=== PATIENT | male | born 1990 | race Caucasian/White ===

== ENCOUNTER 2017-01-21 02:04 | Inpatient (IN) ==
[2017-01-21 02:50] LABS: Basophils % 0.4 %; Eosinophils # 0.1 K/mcL (0.0-0.6); Eosinophils % 0.7 %; Hematocrit 35.5 % (37.5-50.1); Hemoglobin 11.4 g/dL (12.9-16.9); Immature Granulocytes % 0.3 % (0-4); Lymphocytes # 1.7 K/mcL (0.6-4.6); Lymphocytes % 15.2 %; Mean Corpuscular HGB Conc 32.1 g/dL (31.6-35.5); Mean Corpuscular Hemoglobin 28.9 pg (28.0-33.3); Mean Corpuscular Volume 89.9 fL (83.0-100.0); Mean Platelet Volume 8.8 fL (9.4-12.4); Monocytes # 1.2 K/mcL (0.0-1.3); Monocytes % 10.7 %; Neutrophils # 8.2 K/mcL (1.6-8.9); Platelet Count 290 K/mcL (140-400); Red Blood Count 3.95 M/mcL (4.19-5.50); Segmented Neutrophils % 72.7 %
[2017-01-21 03:08] LABS: Alanine Aminotransferase 67 Units/L (0-55); Albumin 2.5 g/dL (3.5-5.0); Albumin/Globulin Ratio 0.4 (1.1-2.2); Alkaline Phosphatase 70 Units/L (38-126); Aspartate Amino Transferase 47 Units/L (5-34); BUN/Creatinine Ratio 4 (6-26); Bilirubin,Direct 0.4 mg/dL (0.0-0.5); Bilirubin,Indirect 0.2 mg/dL (0.0-1.2); Bilirubin,Total 0.6 mg/dL (0.2-1.2); Carbon Dioxide 26 mEq/L (19-29); Chloride 98 mEq/L (98-109); Globulin 6.2 g/dL (2.4-3.5); Glucose 194 mg/dL (70-99); Lipase 19 Units/L (8-78); Osmolality,Calculated 276 (280-300); Potassium 3.8 mEq/L (3.5-4.5); Sodium 132 mEq/L (136-145); Total Protein 8.7 g/dL (6.0-8.3); eGFR For African Americans > 60 (> 60); eGFR For Non-African Americans > 60 (> 60)
[2017-01-21 03:09] LABS: Blood Urea Nitrogen 3 mg/dL (8-26)
--- NOTE | 2017-01-21 03:35 | Emergency Department Note ---
Disposition Clinical Impression: Pericholecystic abscess, Hyponatremia Cholecystitis, acute with cholelithiasis Qualifiers: Cholelithiasis location: gallbladder Biliary obstruction: without biliary obstruction Qualified Code(s): K80.00 - Calculus of gallbladder with acute cholecystitis without obstruction Anemia Qualifiers: Anemia type: unspecified type Qualified Code(s): D64.9 - Anemia, unspecified Disposition: Admitted As Inpatient Condition: Fair Time of Disposition: 06:31 Abdominal Pain HPI - General Chief Complaint: ED Abdominal Pain Stated Complaint: abdominal pain/chest pain Time Seen by Provider: 01/21/17 03:08 Source: patient Nursing Notes Reviewed: Yes Vital Signs Reviewed: Yes - History of Present Illness HPI Narrative: Patient is a 26-year-old male with right upper quadrant pain times past 2 days who is status post transcutaneous gallbladder stenting for infected gallbladder times one month ago. Patient states that the stent was accidentally ripped out by him 2 weeks ago and was seen in the ED [facility]. Patient states he is awaiting surgery but is not scheduled for another 3 weeks. Patient states he is placed on antibiotics completed his course of antibiotics and has been pain-free for little more than a week. Patient states he has been refraining from greasy foods. Patient states his pain started acutely 2 days ago that was very minor and may be 2/10 but is now 10 out of 10. Patient states that he has been having intermittent fevers but has not checked with thermometer. Patient has history of staph infections and was admitted bacteremia secondary to staph 4 months ago. Also has a history of hepatitis C Patient has history of prior IV drug use and admits to methamphetamine use 1 day ago to help with pain control which was unsuccessful. Pain Scale: 10 - Related Data Allergies Allergy/AdvReac Type Severity Reaction Status Date / Time codeine Allergy Hives Verified 01/21/17 11:11 All systems ED: reviewed and negative except as stated. Constitutional: Reports: fever, chills Cardiovascular: Denies: chest pain Respiratory: Denies: cough, dyspnea Gastrointestinal: Reports: abdominal pain, nausea. Denies: vomiting Musculoskeletal: Reports: back pain Abdominal Pain PMH - Past Medical History Medical history: Reports: hepatitis, other Male Surgical History: Reports: other Psychiatric history: Reports: anxiety, ADHD - Social History Smoking status: Current every day smoker Alcohol use: Reports: none Drug use: Reports: none Physical Exam - General Limitations: no limitations General appearance: alert - Head Head exam: atraumatic, normocephalic, normal inspection - Eye Eye exam: Present: normal appearance, PERRL, EOMI. Absent: scleral icterus, nystagmus - ENT ENT exam: normal exam, normal oropharynx, mucous membranes moist - Neck Neck exam: Present: normal inspection, full ROM, trachea midline. Absent: tenderness, meningismus, lymphadenopathy - Chest Chest inspection: Present: normal inspection, symmetric chest wall rise. Absent : tenderness - Respiratory Respiratory exam: Present: normal lung sounds bilaterally, respiratory distress. Absent: wheezes - Cardiovascular Cardiovascular exam: Present: normal rhythm, tachycardia - Abdominal Exam Abdominal exam: Present: soft, tenderness, guarding, normal bowel sounds. Absent: rigidity Abdominal tenderness: Present: RUQ, RLQ - Extremities Exam Extremities exam: Present: normal inspection, full ROM, normal capillary refill. Absent: tenderness, pedal edema - Back Exam Back exam: Present: normal inspection, tenderness (Right flank), CVA tenderness (R). Absent: CVA tenderness (L) - Neurological Exam Neurological exam: Present: alert, oriented X3, CN II-XII intact - Psychiatric Psychiatric exam: Present: normal affect, normal mood - Skin Skin exam: Present: warm, dry. Absent: pallor, mottled Course - Reevaluation(s) Reevaluation #1: Assessment: Sepsis, ascending cholangitis, abdominal abscess, endocarditis, cholecystitis Plan: CBC, BMP, LFTs, lipase, lactate, peripheral blood cultures, CTA chest and CT abdomen and pelvis Time: 03:52 Reevaluation #2: Patient's pain currently 6 out of 10 versus 10 out of 10. Patient awaiting CT scan. 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 Time: 04:27 Reevaluation #3: CT scan shows: IMPRESSION: Cholelithiasis with acute cholecystitis and a pericholecystic abscess. Patient's pain currently controlled with IV morphine. Patient's labs show mild elevation of WBC, hyponatremia at 132, mild elevation of AST and ALT at 47 and 67 respectively, negative lactic acid at 2.0 and negative troponin 0.01. Patient started on antibiotics IV Vanco and Zosyn, patient received 2 L of IV normal saline that did help with the hyponatremia. Recommend admission for further workup and possible surgical evaluation. Time: 06:20 Additional Reevaluation(s): Awaiting for hospitalist to call back. Patient receiving another dose of pain medication morphine 4 mg IV. Pain 7 out of 10 currently 0754 hrs., patient received another 4 mg of morphine. - Consultations Consultation #1: Dr. Hawkins states he will see the patient once he is admitted to medicine. Time: 07:16 Vital Signs Temperature 99.4 F 01/21/17 02:06 Pulse Rate 131 01/21/17 02:06 Respiratory Rate 16 01/21/17 02:06 Blood Pressure 150/94 01/21/17 02:06 O2 Sat by Pulse Oximetry 99 01/21/17 02:06 Temperature 98.4 F 01/21/17 18:56 Pulse Rate 95 01/21/17 18:56 Respiratory Rate 14 01/21/17 18:56 Blood Pressure 150/80 01/21/17 18:56 O2 Sat by Pulse Oximetry 100 01/21/17 18:56 Oxygen Delivery Oxygen Delivery Room Air Abdominal Pain - Medical Records Medical records reviewed: Yes I reviewed the patient's medical records. - Lab Data Lab results reviewed: Yes I reviewed the patient's lab results. Lab results narrative: Short CBC 01/21/17 Range/Units 02:41 WBC 11.3 H (4.3-11.1) K/mcL Hgb 11.4 L (12.9-16.9) g/dL Hct 35.5 L (37.5-50.1) % Plt Count 290 (140-400) K/mcL Neutrophils # 8.2 (1.6-8.9) K/mcL BMP 01/21/17 Range/Units 02:41 Sodium 132 L (136-145) mEq/L Potassium 3.8 (3.5-4.5) mEq/L Chloride 98 (98-109) mEq/L Carbon Dioxide 26 (19-29) mEq/L BUN 3 L (8-26) mg/dL Creatinine 0.80 (0.72-1.25) mg/dL Glucose 194 H (70-99) mg/dL Calcium 9.0 (8.6-10.8) mg/dL Cardiac Enzymes 01/21/17 Range/Units 02:41 Troponin I 0.01 (0-0.03) ng/mL Liver Function 01/21/17 Range/Units 02:41 Total Bilirubin 0.6 (0.2-1.2) mg/dL Direct Bilirubin 0.4 (0.0-0.5) mg/dL AST 47 H (5-34) Units/L ALT 67 H (0-55) Units/L Alkaline Phosphatase 70 (38-126) Units/L Albumin 2.5 L (3.5-5.0) g/dL Urine 01/21/17 Range/Units 04:11 Urine Color Yellow (Yellow) Urine Clarity Cloudy A (Clear) Urine pH 7.0 (5.0-8.0) pH Units Ur Specific [place] 1.010 (1.010-1.025) Urine Protein Negative (Neg-Trace) mg/dL Urine Glucose (UA) 250 H (Normal) mg/dL Result diagrams: 01/21/17 02:41 01/21/17 02:41 Lab Results 01/21/17 01/21/17 01/21/17 Range/Units 02:41 02:41 02:41 WBC 11.3 H (4.3-11.1) K/mcL RBC 3.95 L (4.19-5.50) M/mcL Hgb 11.4 L (12.9-16.9) g/dL Hct 35.5 L (37.5-50.1) % MCV 89.9 (83.0-100.0) fL MCH 28.9 (28.0-33.3) pg MCHC 32.1 (31.6-35.5) g/dL RDW 14.0 (11.5-14.5) % Plt Count 290 (140-400) K/mcL MPV 8.8 L (9.4-12.4) fL Immature Gran % 0.3 (0-4) % Seg Neutrophils % 72.7 % Lymphocytes % 15.2 % Monocytes % 10.7 % Eosinophils % 0.7 % Basophils % 0.4 % Neutrophils # 8.2 (1.6-8.9) K/mcL Lymphocytes # 1.7 (0.6-4.6) K/mcL Monocytes # 1.2 (0.0-1.3) K/mcL Eosinophils # 0.1 (0.0-0.6) K/mcL Basophils # 0.0 (0.0-0.2) K/mcL Sodium 132 L (136-145) mEq/L Potassium 3.8 (3.5-4.5) mEq/L Chloride 98 (98-109) mEq/L Carbon Dioxide 26 (19-29) mEq/L BUN 3 L (8-26) mg/dL Creatinine 0.80 (0.72-1.25) mg/dL Est GFR ( Amer) > 60 (> 60) Est GFR (Non-Af Amer) > 60 (> 60) BUN/Creatinine Ratio 4 L (6-26) Glucose 194 H (70-99) mg/dL Calculated Osmolality 276 L (280-300) Lactic Acid 2.0 (0.5-2.2) mmol/L Calcium 9.0 (8.6-10.8) mg/dL Phosphorus 2.8 (2.3-4.7) mg/dL Magnesium 1.6 (1.6-2.6) mg/dL Total Bilirubin 0.6 (0.2-1.2) mg/dL Direct Bilirubin 0.4 (0.0-0.5) mg/dL Indirect Bilirubin 0.2 (0.0-1.2) mg/dL AST 47 H (5-34) Units/L ALT 67 H (0-55) Units/L Alkaline Phosphatase 70 (38-126) Units/L Troponin I (0-0.03) ng/mL Serum Total Protein 8.7 H (6.0-8.3) g/dL Albumin 2.5 L (3.5-5.0) g/dL Globulin 6.2 H (2.4-3.5) g/dL Albumin/Globulin Ratio 0.4 L (1.1-2.2) Lipase 19 (8-78) Units/L Urine Color (Yellow) Urine Clarity (Clear) Urine pH (5.0-8.0) pH Units Ur Specific [place] (1.010-1.025) Urine Protein (Neg-Trace) mg/dL Urine Glucose (UA) (Normal) mg/dL Urine Ketones (Negative) mg/dL Urine Blood (Negative) Urine Nitrite (Negative) Urine Bilirubin (Negative) Urine Urobilinogen (Normal) mg/dL Ur Leukocyte Esterase (Negative) Urine Microscopic RBC (0-3) per hpf Urine Microscopic WBC (0-3) per hpf Ur Squamous Epith Cells (None-Few) per lpf Urine Bacteria (None-Few) per hpf Hyaline Casts (None-Few) per lpf Ur Culture Indicated? (NO) 01/21/17 01/21/17 Range/Units 02:41 04:11 WBC (4.3-11.1) K/mcL RBC (4.19-5.50) M/mcL Hgb (12.9-16.9) g/dL Hct (37.5-50.1) % MCV (83.0-100.0) fL MCH (28.0-33.3) pg MCHC (31.6-35.5) g/dL RDW (11.5-14.5) % Plt Count (140-400) K/mcL MPV (9.4-12.4) fL Immature Gran % (0-4) % Seg Neutrophils % % Lymphocytes % % Monocytes % % Eosinophils % % Basophils % % Neutrophils # (1.6-8.9) K/mcL Lymphocytes # (0.6-4.6) K/mcL Monocytes # (0.0-1.3) K/mcL Eosinophils # (0.0-0.6) K/mcL Basophils # (0.0-0.2) K/mcL Sodium (136-145) mEq/L Potassium (3.5-4.5) mEq/L Chloride (98-109) mEq/L Carbon Dioxide (19-29) mEq/L BUN (8-26) mg/dL Creatinine (0.72-1.25) mg/dL Est GFR ( Amer) (> 60) Est GFR (Non-Af Amer) (> 60) BUN/Creatinine Ratio (6-26) Glucose (70-99) mg/dL Calculated Osmolality (280-300) Lactic Acid (0.5-2.2) mmol/L Calcium (8.6-10.8) mg/dL Phosphorus (2.3-4.7) mg/dL Magnesium (1.6-2.6) mg/dL Total Bilirubin (0.2-1.2) mg/dL Direct Bilirubin (0.0-0.5) mg/dL Indirect Bilirubin (0.0-1.2) mg/dL AST (5-34) Units/L ALT (0-55) Units/L Alkaline Phosphatase (38-126) Units/L Troponin I 0.01 (0-0.03) ng/mL Serum Total Protein (6.0-8.3) g/dL Albumin (3.5-5.0) g/dL Globulin (2.4-3.5) g/dL Albumin/Globulin Ratio (1.1-2.2) Lipase (8-78) Units/L Urine Color Yellow (Yellow) Urine Clarity Cloudy A (Clear) Urine pH 7.0 (5.0-8.0) pH Units Ur Specific [place] 1.010 (1.010-1.025) Urine Protein Negative (Neg-Trace) mg/dL Urine Glucose (UA) 250 H (Normal) mg/dL Urine Ketones Negative (Negative) mg/dL Urine Blood Negative (Negative) Urine Nitrite Negative (Negative) Urine Bilirubin Negative (Negative) Urine Urobilinogen 4.0 H (Normal) mg/dL Ur Leukocyte Esterase Negative (Negative) Urine Microscopic RBC 0-3 (0-3) per hpf Urine Microscopic WBC 0-3 (0-3) per hpf Ur Squamous Epith Cells Few (None-Few) per lpf Urine Bacteria None Seen (None-Few) per hpf Hyaline Casts None Seen (None-Few) per lpf Ur Culture Indicated? NO (NO) - Radiology Data Radiology results reviewed: Yes I reviewed the patient's radiology results. Abdomen/Pelvis CT 01/21/17 03:51 IMPRESSION: Cholelithiasis with acute cholecystitis and a pericholecystic abscess. D/ / Ronny Carolina MD / Ronny Carolina MD Interpreting Provider: Ronny Carolina MD Chest CTA 01/21/17 03:51 IMPRESSION: No evidence of pulmonary embolism or acute pulmonary abnormality. D/ / Ronny Carolina MD / Ronny Carolina MD Interpreting Provider: Ronny Carolina MD - EKG Data EKG attestation: Yes I reviewed and interpreted this EKG. EKG results narrative: EKG taken 01/21/2017 and 0-50 hours shows a sinus tachycardia at a rate of 126 bpm with no acute ST elevations or depressions any leads no S1 QT T3. No previous EKG for comparison. Attestation Statement - Attestation Attestation: I, Antony Vidal MD, personally performed a history and physical exam of the patient and discussed their management with the resident. I reviewed the resident's note and agree with the documented findings, medical decision making , and plan of care. 26-year-old male presents to the emergency room with a complaint of right upper quadrant abdominal pain over the past 2 days. Patient states that he had an infected gallbladder about a month ago and had a percutaneous drain tube placed in the gallbladder at another facility. Reports they wanted to wait 2 months and then do surgery. About 2 weeks ago he accidentally pulled out the drain tube but did not go back and has not had any follow-up. Over the past couple of days he has had increasing pain with intermittent fever. On examination patient is a well-developed well-nourished male in no acute distress but who appears acutely ill. He is tachycardic with a heart rate in the 130s. Oddly diaphoretic. No cyanosis. He is alert and oriented 3. Breast sounds are clear and equal bilaterally. Heart tachycardic and regular. Abdomen is soft with present bowel sounds. There is moderate right upper quadrant tenderness on direct palpation with guarding. No rebound tenderness. Labs reviewed. CT of the abdomen and pelvis shows cholelithiasis with acute cholecystitis and pericholecystic abscess. Dr. Worley discussed with the surgeon hearing healthcare practitioner, Dr. Hawkins, and he will consult on the patient in the hospital. The hospitalist, Dr. Valentine, was consulted and accepted admission of the patient.
[2017-01-21] MEDS ORDERED: 0.9 % Sodium Chloride 1,000 ML IVC ONE ×2 (03:37→04:04)
[2017-01-21] MEDS ORDERED: Ondansetron 4 MG/2 ML VIAL IV ONE (03:37)
[2017-01-21] MEDS ORDERED: *HR* Morphine 2 MG/ML SYRINGE IVP ONE ×4 (03:37→07:50)
[2017-01-21] MEDS ORDERED: Vancomycin 2,000 MG in D5% in Water 250 ML IVPB ONE (04:02)
[2017-01-21] MEDS ORDERED: Piperacillin/Tazobactam 3.375 GM in D5% in Water (Mini-Bag+) 100 ML IVPB ONE (04:02)
[2017-01-21 04:25] LABS: Bilirubin,Urine Negative (Negative); Blood,Urine Negative (Negative); Clarity,Urine Cloudy (Clear); Color,Urine Yellow (Yellow); Glucose,Urine (UA) 250 mg/dL (Normal); Ketones,Urine Negative (Negative); Leukocyte Esterase,Urine Negative (Negative); Nitrite,Urine Negative (Negative); Protein,Urine Negative (Neg-Trace)
[2017-01-21 04:27] LABS: Bacteria,Urine None Seen per hpf (None-Few); Hyaline Casts,Urine None Seen per lpf (None-Few); RBC,Urine 0-3 per hpf (0-3); Squamous Epithelial Cell,Urine Few per lpf (None-Few); WBC,Urine 0-3 per hpf (0-3)
[2017-01-21 04:36] LABS: Magnesium 1.6 mg/dL (1.6-2.6); Phosphorous 2.8 mg/dL (2.3-4.7)
[2017-01-21] MEDS ORDERED: Vancomycin 1,250 MG in D5% in Water 250 ML IVPB ONE (04:37)
--- NOTE | 2017-01-21 10:25 | Internal Med History&Physical ---
Date of Encounter: 01/21/17 Time of Encounter: 10:22 Assessment and Plan (1) Cholecystitis, acute with cholelithiasis Current visit: Yes Status: Acute HE was seen at [facility] and treated for infected GB as he says. Patient states he is awaiting surgery but is not scheduled for another 3 weeks. he says he finished 15 days course of antibiotics and had a drain placed that got ripped off accidentally. abd CT scan shows cholecystiis with pericholecystic abscess. has h/o IVDA and sepsis with bacteremia in the past. will send blood cx X2 start cefepime and vancomycin surgery has been consulted keep NPO for now. Qualifiers: Cholelithiasis location: gallbladder Biliary obstruction: without biliary obstruction Qualified Code(s): K80.00 - Calculus of gallbladder with acute cholecystitis without obstruction (2) Pericholecystic abscess Current visit: Yes Status: Acute as above (3) IV drug abuse Current visit: Yes Status: Chronic Internal Medicine - H&P: HPI Chief complaint: abdominal pain Admitted From: Home History of present illness: Mr. Banda is a 26 year old male with PMH of bacteremia, IVDA(meth), right upper quadrant pain times past 2 days who is status post placement of a drain for infected gallbladder times one month ago. Patient states that the drain was accidentally ripped out by him 2 weeks ago and was seen in the ED [facility]. Patient states he is awaiting surgery but is not scheduled for another 3 weeks. Patient states he is placed on antibiotics completed his course of antibiotics for 15 days and has been pain-free for little more than a week. HE says the drian was putting out pus initially which has gradually decreased. Patient states he has been refraining from greasy foods. Patient states his pain started acutely 2 days ago that was very minor and may be 2/10 but is now 10 out of 10. he denies n/v but says that he has rt lower limb numbness. Patient has history of staph infections and was admitted bacteremia secondary to staph 4 months ago. Also has a history of hepatitis C Patient has history of prior IV drug use and admits to methamphetamine use 1 day ago to help with pain control which was unsuccessful. Dr. morales was consulted from ED and was told to be admitted to hospitalist service. Past Med Surg Social Fam HX - Past Medical History Medical history: hepatitis, other Psychiatric history: anxiety, ADHD - Social History Smoking Status: Current every day smoker Alcohol use: none Drug use: none Internal Medicine - H&P: Meds Allergies No Known Allergies Allergy (Verified 01/21/17 02:11) All Systems PM: A 10-system review of systems was performed and is negative for pertinent findings except as documented above in the HPI. - Constitutional Vitals: Temp Pulse Resp BP Pulse Ox 99.6 F 124 20 156/84 97 01/21/17 08:57 01/21/17 08:57 01/21/17 08:57 01/21/17 08:57 01/21/17 08:57 General appearance: Present: mild distress, A&O X 3 Exam: neck- supple chest- b/l lear cvs-s1 and s2, no mr//g abd-gurading, tender rt. upper quadrant, bs are preent ext- no edema neuro- no focal defecits. Internal Med - H&P Results - Labs CBC & Chem 7: 01/21/17 02:41 01/21/17 02:41
[2017-01-21] MEDS ORDERED: traMADol 50 MG TABLET PO PRN (10:33)
[2017-01-21] MEDS ORDERED: Ondansetron 4 MG/2 ML VIAL IVP PRN (10:36)
--- NOTE | 2017-01-21 11:25 | General Surgery Consult Note ---
Date of Encounter: 01/21/17 Time of Encounter: 11:19 Assessment and Plan (1) Cholecystitis, acute with cholelithiasis Current Visit: Yes Status: Acute Pt has a large intra hepatic gallbladder with associated pericholecystic fluid. I would recommend a CT guided drain placement by IR until the inflammation has subsided. Qualifiers: Cholelithiasis location: gallbladder Biliary obstruction: without biliary obstruction Qualified Code(s): K80.00 - Calculus of gallbladder with acute cholecystitis without obstruction History of Present Illness Consult date: 01/21/17 Reason for consult: gallstones History of present illness: This is a 26 yo male that lives in [facility]. He had been treated previously for acute cholecystitis by another facility. There is question of a previous drain placement. He reports is was pulled out 2 weeks ago. Past Med Surg Social Fam HX - Past Medical History Medical history: hepatitis, other Psychiatric history: anxiety, ADHD - Social History Smoking Status: Current every day smoker Alcohol use: none Drug use: none Medications and Allergies No Known Home Drugs 01/21/17 [History] Allergies codeine Allergy (Verified 01/21/17 11:11) Hives Review of Systems All systems PM: A 10-system review of systems was performed and is negative for pertinent findings except as documented above in the HPI. - Constitutional fever(s), night sweats, weakness - Gastrointestinal abdominal pain, cramping General Surgery Exam Initial Vital Signs Temp Pulse Resp BP Pulse Ox 99.4 F 131 16 150/94 99 01/21/17 02:06 01/21/17 02:06 01/21/17 02:06 01/21/17 02:06 01/21/17 02:06 - General physical appearance well nourished - Eyes PERRL, normal ocular movement - Neck no masses, trachea midline - Respiratory normal respiratory effort - Abdomen Abdomen general surgery: Present: bowel sounds present, tender Abdominal Tenderness: Present: RUQ - Neurologic Present: CN 2-12 grossly intact, normal sensation - Musculoskeletal Present: normal posture - Psychiatric Psychiatric general surgery: Present: A&Ox3, speech is normal Exam Initial Vital Signs Temp Pulse Resp BP Pulse Ox 99.4 F 131 16 150/94 99 01/21/17 02:06 01/21/17 02:06 01/21/17 02:06 01/21/17 02:06 01/21/17 02:06 Results - Labs 01/21/17 02:41 01/21/17 02:41 Abnormal lab results WBC 11.3 K/mcL (4.3-11.1) H 01/21/17 02:41 RBC 3.95 M/mcL (4.19-5.50) L 01/21/17 02:41 Hgb 11.4 g/dL (12.9-16.9) L 01/21/17 02:41 Hct 35.5 % (37.5-50.1) L 01/21/17 02:41 MPV 8.8 fL (9.4-12.4) L 01/21/17 02:41 Sodium 132 mEq/L (136-145) L 01/21/17 02:41 BUN 3 mg/dL (8-26) L 01/21/17 02:41 BUN/Creatinine Ratio 4 (6-26) L 01/21/17 02:41 Glucose 194 mg/dL (70-99) H 01/21/17 02:41 Calculated Osmolality 276 (280-300) L 01/21/17 02:41 AST 47 Units/L (5-34) H 01/21/17 02:41 ALT 67 Units/L (0-55) H 01/21/17 02:41 Serum Total Protein 8.7 g/dL (6.0-8.3) H 01/21/17 02:41 Albumin 2.5 g/dL (3.5-5.0) L 01/21/17 02:41 Globulin 6.2 g/dL (2.4-3.5) H 01/21/17 02:41 Albumin/Globulin Ratio 0.4 (1.1-2.2) L 01/21/17 02:41 Urine Clarity Cloudy (Clear) A 01/21/17 04:11 Urine Glucose (UA) 250 mg/dL (Normal) H 01/21/17 04:11 Urine Urobilinogen 4.0 mg/dL (Normal) H 01/21/17 04:11 All other labs normal. - Imaging CT scan - abdomen: image reviewed CT scan - chest: image reviewed Consult Discharge Plan - Plan Referrals: NO,PCP [Primary Care Provider] -
[2017-01-21] MEDS: *HR* Morphine 2 MG/ML SYRINGE IVP PRN ×4 (11:35→22:04)
[2017-01-21] MEDS: 0.9 % Sodium Chloride 1,000 ML IVC SCH (11:36)
[2017-01-21] MEDS: *HR* Enoxaparin 30 MG/0.3 ML SYRINGE SQ SCH (11:36)
[2017-01-21] MEDS ORDERED: Ketorolac 30 MG/ML VIAL IVP ONE (12:22)
[2017-01-21] MEDS: Nicotine 21 MG PATCH.TD24 TD SCH (13:03)
[2017-01-21] MEDS: Vancomycin 1,500 MG in D5% in Water 250 ML IVPB SCH (15:31)
[2017-01-21] MEDS: Piperacillin/Tazobactam 3.375 GM in D5% in Water (Mini-Bag+) 100 ML IVPB SCH (17:19)
[2017-01-21] MEDS ORDERED: Vancomycin 1,000 MG in D5% in Water 250 ML IVPB SCH (18:00)
[2017-01-21] MEDS: Ketorolac 30 MG/ML VIAL IVP PRN (23:43)
[2017-01-22] MEDS: Piperacillin/Tazobactam 3.375 GM in D5% in Water (Mini-Bag+) 100 ML IVPB SCH ×3 (01:47→17:59)
[2017-01-22] MEDS: *HR* Morphine 2 MG/ML SYRINGE IVP PRN ×4 (01:48→11:55)
[2017-01-22] MEDS: 0.9 % Sodium Chloride 1,000 ML IVC SCH ×2 (01:51→06:38)
[2017-01-22] MEDS ORDERED: *HR* Dextrose 50 % in Water (Syg) 50 ML SYRINGE ONE (05:48)
[2017-01-22] MEDS: *HR* Dextrose 50 % in Water (Syg) 50 ML SYRINGE IVP ONE ×2 (05:49→06:11)
[2017-01-22] MEDS: *HR* Enoxaparin 30 MG/0.3 ML SYRINGE SQ SCH (05:50)
[2017-01-22] MEDS: Vancomycin 1,500 MG in D5% in Water 250 ML IVPB SCH ×2 (05:50→17:58)
[2017-01-22] MEDS: Ketorolac 30 MG/ML VIAL IVP PRN (06:49)
[2017-01-22] MEDS ORDERED: Ketorolac 30 MG/ML VIAL IVP PRN (08:14)
[2017-01-22] MEDS ORDERED: 0.9 % Sodium Chloride 1,000 ML IVC SCH (08:14)
[2017-01-22] MEDS: Nicotine 21 MG PATCH.TD24 TD SCH (08:41)
--- NOTE | 2017-01-22 10:16 | Internal Med Progress Note ---
Date of Encounter: 01/22/17 Time of Encounter: 10:00 - Assessment and plan (1) Cholecystitis, acute with cholelithiasis Current Visit: Yes Status: Acute Assessment and plan: Patient treated for acute cholecystitis with pericholecystic abscess at [facility], he had echo done as drainage place but this fell off accidentally a few days ago. He completed 15 days of oral antibiotics. He is planned to have a surgical intervention in 3 weeks. Now, he comes with severe abdominal pain. CT of the abdomen and pelvis revealed cholelithiasis with acute cholecystitis and a pericholecystic abscess. CT chest angiogram was unremarkable. Appreciate surgery input. Plan for pancreatitis placement of right upper quadrant catheter. Continue IV cefepime and IV vancomycin. Blood cultures pending. Qualifiers: Cholelithiasis location: gallbladder Biliary obstruction: without biliary obstruction Qualified Code(s): K80.00 - Calculus of gallbladder with acute cholecystitis without obstruction (2) Hyponatremia Current Visit: Yes Status: Acute Assessment and plan: hypovolemic hyponatremia secondary to infection. continue iv fluids. (3) Anemia Current Visit: Yes Status: Acute Assessment and plan: hgb is 11.4. Patient is hemodynamically stable. Close monitoring. No need for transfusion at this time. Qualifiers: Anemia type: unspecified type Qualified Code(s): D64.9 - Anemia, unspecified (4) IV drug abuse Current Visit: Yes Status: Chronic - Subjective Interval history: patient complains of RUQ abdominal pain that is better compared to admission. no nausea. no vomiting. - Constitutional Vitals: Temp Pulse Resp BP Pulse Ox 98.7 F 98 14 118/76 95 01/22/17 07:44 01/22/17 07:44 01/22/17 07:44 01/22/17 07:44 01/22/17 07:44 General appearance: Present: cooperative, A&O X 3, pleasant, no acute distress, answers questions appropriately - Respiratory Respiratory exam: Present: CTAB - Cardiovascular Cardiovascular exam: Present: RRR - GI/Abdominal GI/Abdominal exam: Present: normal bowel sounds, soft, tenderness (RUQ ). Absent: distended - Extremities Exam Extremities exam: Absent: pedal edema - Back Exam Back exam: Absent: CVA tenderness (L), CVA tenderness (R) - Neurological Exam Neurological exam: Present: alert, oriented X3, no focal deficits, strengths equal and symetr throughout. Absent: facial droop, speech deficit - Skin Skin exam: Absent: rash Internal Medicine: Result - Labs CBC & Chem 7: 01/21/17 02:41 01/21/17 02:41 Consult Discharge Plan - Plan Referrals: NO,PCP [Primary Care Provider] -
--- NOTE | 2017-01-22 12:55 | General Surgery Progress Note ---
Date of Encounter: 01/22/17 Time of Encounter: 12:54 - Assessment and Plan (1) Cholecystitis, acute with cholelithiasis Current Visit: Yes Status: Acute Pt has a large intra hepatic gallbladder with associated pericholecystic fluid. I would recommend a CT guided drain placement by IR, then cholecystectomy when the inflammation has subsided. Qualifiers: Cholelithiasis location: gallbladder Biliary obstruction: without biliary obstruction Qualified Code(s): K80.00 - Calculus of gallbladder with acute cholecystitis without obstruction Subjective Patient reports: feels better Objective Vital Signs - Last 8 Hours Temp Pulse Resp BP Pulse Ox 01/22/17 11:04 97.5 F L 94 15 144/94 99 01/22/17 07:44 98.7 F 98 14 118/76 95 Intake and Output 01/21/17 01/22/17 01/22/17 23:59 07:59 15:59 Intake Total 350 / 350 1100 / 1100 250 / 250 Output Total 775 / 775 875 / 875 Balance -425 / -425 225 / 225 250 / 250 Intake: IV Fluids 350 / 350 1100 / 1100 250 / 250 0.9 % Sodium Chloride 1, 1000 / 1000 000 ML @ 125 mls/hr IVC . Q8H MATILDE Rx#:[id number] Zosyn 3.375 GM In 100 / 100 100 / 100 Dextrose 5% (Minibag+) 100 ML 100 ML @ 25 mls/hr IVPB Q8H MATILDE Rx#: [id number] Vancocin 1,500 MG In 250 / 250 250 / 250 Dextrose 5% 250 ML @ 166. 67 mls/hr IVPB Q12H MATILDE Rx#:[id number] Oral 0 / 0 0 / 0 Output: Urine 775 / 775 875 / 875 Other: Meal NPO for supper NPO Weight 86.1 kg Blood Glucose* 86 63 Patient Weight 01/22/17 23:59 Weight 86.1 kg - General physical appearance no distress - Eyes PERRL - Respiratory normal expansion - Cardiovascular Cardiovascular exam: Present: NR - Abdomen Abdomen: Present: bowel sounds present, soft, tender Abdominal Tenderness: RUQ - Musculoskeletal normal posture - Psychiatric oriented to time, oriented to person, oriented to place, speech is normal - Labs 01/21/17 02:41 01/21/17 02:41 Consult Discharge Plan - Plan Referrals: NO,PCP [Primary Care Provider] -
[2017-01-22] MEDS: *HR* HYDROmorphone (PF) 1 MG/ML SYRINGE IVP PRN ×2 (15:49→20:33)
[2017-01-22] MEDS ORDERED: D5% in 0.9% NACL 1,000 ML IVC SCH (23:45)
[2017-01-22] MEDS ORDERED: D5% in Water 1,000 ML IVC PRN (23:52)
[2017-01-22] MEDS ORDERED: Dextrose Gel 15 GM PO PRN ×2 (23:52)
[2017-01-22] MEDS ORDERED: *HR* Dextrose 50 % in Water (Syg) 50 ML SYRINGE IVP PRN (23:52)
[2017-01-23] MEDS: *HR* HYDROmorphone (PF) 1 MG/ML SYRINGE IVP PRN ×4 (01:37→14:54)
[2017-01-23 01:40] LABS: Basophils % 0.2 %; Eosinophils # 0.2 K/mcL (0.0-0.6); Eosinophils % 1.4 %; Hemoglobin 11.7 g/dL (12.9-16.9); Immature Granulocytes % 0.6 % (0-4); Lymphocytes # 1.8 K/mcL (0.6-4.6); Lymphocytes % 13.2 %; Mean Corpuscular HGB Conc 33.4 g/dL (31.6-35.5); Mean Corpuscular Hemoglobin 29.3 pg (28.0-33.3); Mean Corpuscular Volume 87.5 fL (83.0-100.0); Mean Platelet Volume 8.6 fL (9.4-12.4); Monocytes # 1.6 K/mcL (0.0-1.3); Monocytes % 12.1 %; Neutrophils # 9.7 K/mcL (1.6-8.9); Platelet Count 282 K/mcL (140-400); Red Cell Distribution Width 13.8 % (11.5-14.5); Segmented Neutrophils % 72.5 %
[2017-01-23 01:53] LABS: Hemoglobin A1C 5.4 %
[2017-01-23 01:55] LABS: Alanine Aminotransferase 65 Units/L (0-55); Albumin 2.3 g/dL (3.5-5.0); Albumin/Globulin Ratio 0.4 (1.1-2.2); Alkaline Phosphatase 73 Units/L (38-126); Aspartate Amino Transferase 56 Units/L (5-34); BUN/Creatinine Ratio 5 (6-26); Bilirubin,Total 1.1 mg/dL (0.2-1.2); Blood Urea Nitrogen 8 mg/dL (8-26); Calcium 9.3 mg/dL (8.6-10.8); Carbon Dioxide 24 mEq/L (19-29); Chloride 103 mEq/L (98-109); Globulin 6.4 g/dL (2.4-3.5); Glucose 97 mg/dL (70-99); Osmolality,Calculated 280 (280-300); Potassium 3.6 mEq/L (3.5-4.5); Sodium 136 mEq/L (136-145); Total Protein 8.7 g/dL (6.0-8.3); eGFR For African Americans > 60 (> 60); eGFR For Non-African Americans 57 (> 60)
[2017-01-23] MEDS: Piperacillin/Tazobactam 3.375 GM in D5% in Water (Mini-Bag+) 100 ML IVPB SCH ×3 (02:07→17:51)
[2017-01-23 02:40] LABS: Platelet Estimate Normal (Normal); Reactive Lymphocytes Present (Not Present)
[2017-01-23] MEDS: Vancomycin 1,500 MG in D5% in Water 250 ML IVPB SCH (04:27)
[2017-01-23] MEDS: *HR* Enoxaparin 30 MG/0.3 ML SYRINGE SQ SCH (06:25)
[2017-01-23] MEDS ORDERED: D5% in 0.9% NACL 1,000 ML IVC SCH (08:10)
[2017-01-23] MEDS: Nicotine 21 MG PATCH.TD24 TD SCH (09:38)
--- NOTE | 2017-01-23 13:34 | Pre-Sedation Evaluation ---
Pre-sedation evaluation - Pre-sedation checklist Date of procedure: 01/23/17 Procedure: perc isidro tube placement Recent Vitals: Last Vital Signs Temp 100.2 F H 01/23/17 11:04 Pulse 95 01/23/17 11:04 Resp 16 01/23/17 11:04 BP 144/91 01/23/17 11:04 Pulse Ox 97 01/23/17 11:04 Dietary Status: NPO 6 hours prior to procedure Airway Assessment: Patient can open mouth completely, TMJ function normal, Micrognathia (under-bite, receding chin) absent, Neck with adequate range of motion ASA Classification *see protocol: CLASS II-Mild systemic disease Plan of Care: Pt appropriate candidate for procedure/moderate/conscious sedation , Risks/benefits of procedure/sedation discussed w/ patient/family, If not NPO; Risk of intake outweiged by necessity to perform procedure
[2017-01-23] MEDS ORDERED: 0.9 % Sodium Chloride 500 ML ONE (13:41)
[2017-01-23] MEDS: *HR* FentaNYL (PF) 100 MCG/2 ML VIAL IV PRN ×2 (13:46→13:58)
[2017-01-23] MEDS: *HR* Midazolam HCl 2 MG/2 ML VIAL IV PRN ×2 (13:47→13:58)
--- NOTE | 2017-01-23 14:23 | IR Procedure Note ---
Date of procedure: 01/23/17 Consent Obtained: Verbal consent, Written consent Timeout: Correct patient and procedure verified, Correct site verified, Time out performed, Skin prep completed Local anesthetic: Lidocaine 1% Indications: acute cholecystitis Procedure Performed: percutaneous cholecystostomy tube placement Site/Technique: gallbladder Results/Findings: immediate return of pus, sample sent for cx Estimated blood loss (cc): 2 Complications: None; Tolerated procedure well Post Procedure Treatment Plan: bedrest x 1 hour
[2017-01-23 15:33] LABS: Calcium 8.9 mg/dL (8.6-10.8)
--- NOTE | 2017-01-23 15:37 | General Surgery Progress Note ---
Date of Encounter: 01/23/17 Time of Encounter: 15:34 - Assessment and Plan (1) Cholecystitis, acute with cholelithiasis Current Visit: Yes Status: Acute IR drainage complete today Maintain pigtail drain Low fat diet Supportive care/pain control IV antibiotics>may convert to PO at discharge Plan for outpatient follow-up in surgery office in [address] Hawkins to discuss interval cholecystectomy Qualifiers: Cholelithiasis location: gallbladder Biliary obstruction: without biliary obstruction Qualified Code(s): K80.00 - Calculus of gallbladder with acute cholecystitis without obstruction (2) Pericholecystic abscess Current Visit: Yes Status: Acute s/p IR drainage today Subjective Patient reports: no new complaints, still having pain, tolerating liquids well, voiding w/o difficulty, afebrile, other (s/p IR drain placement today) Objective Vital Signs - Last 8 Hours Temp Pulse Resp BP Pulse Ox 01/23/17 14:10 84 15 126/76 100 01/23/17 14:03 91 10 127/77 100 01/23/17 13:42 78 15 122/70 100 01/23/17 13:38 82 12 123/74 01/23/17 11:04 100.2 F H 95 16 144/91 97 01/23/17 08:10 98.4 F 96 18 136/82 97 Intake and Output 01/22/17 01/23/17 01/23/17 23:59 07:59 15:59 Intake Total 590 / 590 1150 / 1150 0 / 0 Output Total 425 / 425 775 / 775 500 / 500 Balance 165 / 165 375 / 375 -500 / -500 Intake: IV Fluids 350 / 350 1150 / 1150 0.9 % Sodium Chloride 1, 800 / 800 000 ML @ 100 mls/hr IVC . Q10H [facility]ILDE Rx#:[id number] Zosyn 3.375 GM In 100 / 100 100 / 100 Dextrose 5% (Minibag+) 100 ML 100 ML @ 25 mls/hr IVPB Q8H MATILDE Rx#: [id number] Vancocin 1,500 MG In 250 / 250 250 / 250 Dextrose 5% 250 ML @ 166. 67 mls/hr IVPB Q12H MATILDE Rx#:[id number] Oral 240 / 240 0 / 0 0 / 0 Output: Urine 425 / 425 775 / 775 500 / 500 Other: Meal NPO for supper NPO Blood Glucose* 65 124 97 - General physical appearance well developed, well nourished, no distress - Eyes normal ocular movement - ENT normal mucosa, atraumatic, normocephalic - Neck Neck exam: trachea midline - Respiratory normal respiratory effort, clear to auscultation - Cardiovascular Cardiovascular exam: Present: RRR - Abdomen Abdomen: Present: bowel sounds present, soft, tender, wound (Pigtail drain with purulent drainage noted) Abdominal Tenderness: epigastic, RUQ - Neurologic CN 2-12 grossly intact - Psychiatric oriented to time, oriented to person, oriented to place, speech is normal, memory intact - Labs 01/23/17 01:16 01/23/17 01:16 Diabetes panel 01/23/17 01/23/17 Range/Units 01:16 01:16 Sodium 136 (136-145) mEq/L Potassium 3.6 (3.5-4.5) mEq/L Chloride 103 (98-109) mEq/L Carbon Dioxide 24 (19-29) mEq/L BUN 8 (8-26) mg/dL Creatinine 1.48 H D (0.72-1.25) mg/dL Glucose 97 (70-99) mg/dL Hemoglobin A1c 5.4 ( - 5.6) % Calcium 9.3 (8.6-10.8) mg/dL AST 56 H (5-34) Units/L ALT 65 H (0-55) Units/L Alkaline Phosphatase 73 (38-126) Units/L Albumin 2.3 L (3.5-5.0) g/dL Calcium panel 01/23/17 Range/Units 01:16 Calcium 9.3 (8.6-10.8) mg/dL Albumin 2.3 L (3.5-5.0) g/dL Pituitary panel 01/23/17 Range/Units 01:16 Sodium 136 (136-145) mEq/L Potassium 3.6 (3.5-4.5) mEq/L Chloride 103 (98-109) mEq/L Carbon Dioxide 24 (19-29) mEq/L BUN 8 (8-26) mg/dL Creatinine 1.48 H D (0.72-1.25) mg/dL Glucose 97 (70-99) mg/dL Calcium 9.3 (8.6-10.8) mg/dL Adrenal panel 01/23/17 Range/Units 01:16 Sodium 136 (136-145) mEq/L Potassium 3.6 (3.5-4.5) mEq/L Chloride 103 (98-109) mEq/L Carbon Dioxide 24 (19-29) mEq/L BUN 8 (8-26) mg/dL Creatinine 1.48 H D (0.72-1.25) mg/dL Glucose 97 (70-99) mg/dL Calcium 9.3 (8.6-10.8) mg/dL Total Bilirubin 1.1 D (0.2-1.2) mg/dL AST 56 H (5-34) Units/L ALT 65 H (0-55) Units/L Alkaline Phosphatase 73 (38-126) Units/L Albumin 2.3 L (3.5-5.0) g/dL Consult Discharge Plan - Plan Additional Instructions: low fat diet drain care- may shower, wash around drain with soap and water, apply dry dressing and tape to secure daily. Empty drain 3 times daily and as needed if full. Record outputs in ml's and bring to follow-up appointment with Dr. Hawkins on 02/07/17. Referrals: NO,PCP [Primary Care Provider] - Leo Hawkins DO [Partnered Physician] - 02/07/17 9:10 am (discuss interval cholecystectomy)
[2017-01-23 16:04] LABS: Potassium 5.2 mEq/L (3.5-4.5)
--- NOTE | 2017-01-23 16:15 | Internal Med Progress Note ---
Date of Encounter: 01/23/17 Time of Encounter: 10:45 - Assessment and plan (1) Cholecystitis, acute with cholelithiasis Current Visit: Yes Status: Acute Assessment and plan: Patient treated for acute cholecystitis with pericholecystic abscess at [facility], he had echo done as drainage place but this fell off accidentally a few days ago. He completed 15 days of oral antibiotics. He is planned to have a surgical intervention in 3 weeks. Now, he comes with severe abdominal pain. CT of the abdomen and pelvis revealed cholelithiasis with acute cholecystitis and a pericholecystic abscess. CT chest angiogram was unremarkable. Appreciate surgery input. Plan for percutaneous placement of right upper quadrant catheter. stop Vancomycin. continue Zosyn. Blood cultures negative so far. RUQ catheter drainage sent for WBC and culture. Qualifiers: Cholelithiasis location: gallbladder Biliary obstruction: without biliary obstruction Qualified Code(s): K80.00 - Calculus of gallbladder with acute cholecystitis without obstruction (2) Acute kidney injury Current Visit: Yes Status: Acute Assessment and plan: Macey with hyperkalemia. etiology is multifactorial secondary to toradol. continue IV fluids. stop all NSAIDS. stop vancomycin (vancomycin through is 10). strict I/O. close monitoring. check urine cr/bun, check UDS. (3) Hyponatremia Current Visit: Yes Status: Acute Assessment and plan: resolved. hypovolemic hyponatremia secondary to infection. continue iv fluids. (4) Anemia Current Visit: Yes Status: Acute Assessment and plan: hgb is 11.4. Patient is hemodynamically stable. Close monitoring. No need for transfusion at this time. Qualifiers: Anemia type: unspecified type Qualified Code(s): D64.9 - Anemia, unspecified (5) IV drug abuse Current Visit: Yes Status: Chronic - Subjective Interval history: patient reports his RUQ pain is controlled with medications. - Constitutional Vitals: Temp Pulse Resp BP Pulse Ox 100.2 F H 84 15 126/76 100 01/23/17 11:04 01/23/17 14:10 01/23/17 14:10 01/23/17 14:10 01/23/17 14:10 General appearance: Present: cooperative, A&O X 3, pleasant, no acute distress, answers questions appropriately - Respiratory Respiratory exam: Present: CTAB - Cardiovascular Cardiovascular exam: Present: RRR - GI/Abdominal GI/Abdominal exam: Present: soft, tenderness (RUQ tenderness). Absent: distended - Extremities Exam Extremities exam: Absent: pedal edema - Back Exam Back exam: Absent: CVA tenderness (L), CVA tenderness (R) - Neurological Exam Neurological exam: Present: alert, oriented X3, no focal deficits, strengths equal and symetr throughout. Absent: facial droop, speech deficit - Skin Skin exam: Absent: rash Internal Medicine: Result - Labs CBC & Chem 7: 01/23/17 01:16 01/23/17 15:11 Labs: Short CBC 01/23/17 Range/Units 01:16 WBC 13.4 H (4.3-11.1) K/mcL Hgb 11.7 L (12.9-16.9) g/dL Hct 35.0 L (37.5-50.1) % Plt Count 282 (140-400) K/mcL Neutrophils # 9.7 H (1.6-8.9) K/mcL BMP 01/23/17 01/23/17 01:16 15:11 Sodium 136 139 Potassium 3.6 5.2 H D Chloride 103 109 Carbon Dioxide 24 20 BUN 8 10 Creatinine 1.48 H D 1.86 H Glucose 97 72 Calcium 9.3 8.9 Liver Function 01/23/17 Range/Units 01:16 Total Bilirubin 1.1 D (0.2-1.2) mg/dL AST 56 H (5-34) Units/L ALT 65 H (0-55) Units/L Alkaline Phosphatase 73 (38-126) Units/L Albumin 2.3 L (3.5-5.0) g/dL Consult Discharge Plan - Plan Additional Instructions: low fat diet drain care- may shower, wash around drain with soap and water, apply dry dressing and tape to secure daily. Empty drain 3 times daily and as needed if full. Record outputs in ml's and bring to follow-up appointment with Dr. Hawkins on 02/07/17. Referrals: Leo Hawkins DO [Partnered Physician] - 02/07/17 9:10 am (discuss interval cholecystectomy) NO,PCP [Primary Care Provider] -
[2017-01-23 16:21] VITALS: BP 120/76
--- NOTE | 2017-01-23 18:22 | Event Note ---
Date of Encounter: 01/23/17 Time of Encounter: 18:17
--- NOTE | 2017-01-23 18:30 | Discharge Summary ---
Date of Encounter: 01/23/17 Time of Encounter: 18:22 - Discharge Diagnosis (1) Cholecystitis, acute with cholelithiasis Priority: Primary Status: Acute Qualifiers: Cholelithiasis location: gallbladder Biliary obstruction: without biliary obstruction Qualified Code(s): K80.00 - Calculus of gallbladder with acute cholecystitis without obstruction (2) Acute kidney injury Priority: Primary Status: Acute (3) Hyponatremia Priority: Primary Status: Acute (4) Anemia Priority: Primary Status: Acute Qualifiers: Anemia type: unspecified type Qualified Code(s): D64.9 - Anemia, unspecified (5) IV drug abuse Priority: Secondary Status: Chronic - Discharge Medications Prescriptions: HYDROcodone/Acet 5/325 mg [[place] 5-325 mg] 1 tab PO Q8HR PRN #14 tab PRN Reason: moderate to severe pain Amoxicillin/Clavulanate [Augmentin] 875 mg PO BIDWM #14 tablet Home Medications: Amoxicillin/Clavulanate [Augmentin] 875 mg PO BIDWM #14 tablet 01/23/17 [Rx] HYDROcodone/Acet 5/325 mg [[place] 5-325 mg] 1 tab PO Q8HR PRN #14 tab 01/23/17 [ Rx] Nicotine Patch [Nicoderm] 21 mg TD DAILY #0 [email or web address] 01/23/17 [Rx] Allergies/Adverse Reactions: Allergies codeine Allergy (Verified 01/21/17 11:11) Hives Procedures/tests Complete & Pending: Procedures Performed prior 72 hours Category Date Time Status CT guided asp with tube [CT] Routine Cat Scan 01/23/17 Taken Date of admission: 01/22/17 16:33 Primary care physician: PCP NO Consults: 01/23/17 10:26 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 Empty drain 3 times daily and as needed if full. Record outputs in ml's and bring to follow-up appointment with Dr. Hawkins on 02/07/17. follow up with a primary care doctor for a repeat BMP. DO NOT TAKE ANY OVER-THE COUNTER NSAIDS (ALEVE, MOTRIN, IBUPROFEN, NAPROXEN), THESE MEDICATIONS COULD HARM YOUR KIDNEYS. - Diet and Activity Activity: resume usual activities as tolerated Diet: low fat, low cholesterol Hospital course: Mr. Banda is a 26 year old male with past medical history IV drug use who was recently treated for acute cholecystitis with pericholecystic abscess at [facility], he had a percutaneous drainage catheter placed but this fell off accidentally a few days ago and completed 15 days of oral antibiotics. He was scheduled to have a cholecystectomy in 3 weeks. He presented with a chief complaint of severe abdominal pain. CT of the abdomen and pelvis revealed cholelithiasis with acute cholecystitis and a pericholecystic abscess. CT chest angiogram was unremarkable. He was started on IV antibiotics with Zosyn and vancomycin as well as IV fluid hydration and pain meds (IV toradol, IV opiates). Patient underwent placement of percutaneous cholecystostomy tube without complications. His creatinine and potassium trended up. He received IV bolus and his vancomycin and Toradol were stopped. Patient refused to stay another day in the hospital, he complained that the bed was uncomfortable and he was tired to be in the hospital. I explained in detail she is diagnosis including acute cholecystitis, acute kidney injury, hyperkalemia, treatment options, and prognosis if he leaves the hospital including sepsis, arrhythmias and . Patient verbalized understanding and wishes to go home. Upon questioning, patient does not have established primary care physician. He has stated that his will get an appointment. PLAN: repeat BMP in 2 days. f/u with PCP in 2 days. - Time Spent with Patient Total time spent providing and/or coordinating discharge services: - Constitutional Vitals: Temp Pulse Resp BP Pulse Ox 98.5 F 100 18 120/76 98 01/23/17 16:19 01/23/17 16:19 01/23/17 16:19 01/23/17 16:19 01/23/17 16:19 General appearance: Present: cooperative, A&O X 3, pleasant, no acute distress, answers questions appropriately
[2017-01-23 18:42] LABS: Appearance of Body Fluid Cloudy (Clear); Source of Body Fluid RUQ catheter drainag; Volume of Body Fluid 5 mL
[2017-01-23] MEDS ORDERED: Aminoglycoside Consult 1 EACH MC ONE (18:54)
--- NOTE | 2017-01-23 20:26 | Electrocardiograph Report ---
[address] [place], [place] [address] Test Date: 2017-01-21 Pat Name: Jayesh Banda Department: 102 Room: 3A46 Gender: M Sheet Layer: Johnathon : 1990 Requested By: Antony Vidal Order Number: [id number] Reading MD: Lázaro Garcia MD Measurements Intervals Barre Rate: 126 P: 31 AL: 128 QRS: 48 QRSD: 92 T: 28 QT: 297 QTc: 371 Interpretive Statements SINUS TACHYCARDIA Electronically Signed On 01-23-2017 20:25:28 EDT by Lázaro Garcia MD
[2017-01-24] MEDS ORDERED: *HR* Enoxaparin 40 MG/0.4 ML SYRINGE SQ SCH (06:00)
[2017-01-24] MEDS ORDERED: *HR* Heparin 5,000 UNIT/ML VIAL SQ SCH (09:00)
== END 2017-01-23 18:55 | disposition left against medical advice (07) | DRG 261 ==
LOC: EMEROO 02:04 → 3ANU 02:04
PROVIDERS: ADMIT Internal Medicine Endocrinology, Diabetes & Metabolism; ATTEND Internal Medicine
PROC: IRDRAIN (2017-01-23 12:00)